=== PATIENT | female | born 1970 | race Caucasian/White ===

== ENCOUNTER 2016-12-04 20:01 | Emergency (ER) | payer OTHER ==
[~2016-12-04] VITALS: Ht 157.5 cm; Wt 81.1 kg
[2016-12-04 20:16] VITALS: Ht 157.5 cm; Wt 81.1 kg
[2016-12-04] MEDS ORDERED: LORA-186 PO (21:50)
[2016-12-04] MEDS ORDERED: IBUP400T22 PO (21:50)
[2016-12-04] MEDS ORDERED: FLUT9.9S NASAL (21:50)
[2016-12-04] MEDS ORDERED: BENZ100C70 PO (21:50)
--- NOTE | 2016-12-04 21:55 | ERD ---
ER Documentation Chief Complaint Date/Time DATE: 12/04/16 TIME: 21:53 Chief Complaint GAMBOA, cough and B ear each x 4 weeks. Aayushrin at 1800 HPI This is a 46-year-old female presenting to the emergency department complaining of cough, ear pain, headache on and off for more than 1 month. Patient denies any current fevers. She states that she took cough syrup earlier today without any relief. She denies any chest pain, shortness of breath. Patient brings son with same complaint ROS All systems reviewed and are negative except as per history of present illness. Medications Home Meds Active Scripts Benzonatate* (Tessalon Perle*) 100 Mg Capsule, 100 MG PO Q8H Y for COUGH, #20 CAP Prov:ANASTASIIA CABRAL PA-C 12/04/16 Fluticasone Propionate (Flonase Allergy Relief) 9.9 Ml [place].susp, 1 SPRAY NASAL BID for 14 Days, #1 BOTTLE TO EACH NOSTRIL Prov:ANASTASIIA CABRAL PA-C 12/04/16 Loratadine* (Claritin*) 10 Mg Tablet, 10 MG PO DAILY, #20 TAB Prov:ANASTASIIA CABRAL PA-C 12/04/16 Ibuprofen* (Ibuprofen*) 400 Mg Tablet, 400 MG PO Q6H Y for PAIN, #30 TAB Prov:ANASTASIIA CABRAL PA-C 12/04/16 PMhx/Soc History of Surgery: Yes (eron, csection x 3) Anesthesia Reaction: No Hx Neurological Disorder: No Hx Respiratory Disorders: No Hx Cardiac Disorders: Yes (htn) Hx Psychiatric Problems: Yes (bipolar) Hx Alcohol Use: No Hx Substance Use: No Hx Tobacco Use: No Physical Exam Vitals Vital Signs Date Time Temp Pulse Resp B/P Pulse Ox O2 Delivery O2 Flow Rate FiO2 12/04/16 20:16 98.3 104 18 182/86 99 Physical Exam GENERAL: well-developed/well-nourished, in no apparent distress, non-toxic appearing HEAD: NC/AT, no swelling noted in frontal or maxillary areas EARS: bilateral tympanic membrane is intact without erythema or effusion NARES: congested THROAT: oropharynx nonerythematous without exudates, no tonsil enlargement, post nasal drip EYES: Conjunctiva normal NECK: Supple, no lymphadenopathy PULM: CTA bilaterally, no rales, rhonchi, or wheezing heard CV: Normal S1S2, RRR, good capillary refill GI: Soft, non-distended, normal bowel sounds, non-tender BACK: No midline tenderness, no masses EXT No clubbing, cyanosis, or edema NEURO: Alert and Orientated SKIN: Intact, normal turgor PSYCH: Normal mood and mentation Procedures/MDM This is a 46-year-old female with history of hypertension presenting to the emergency department complaining of cough and symptoms of upper respiratory infection for the past month, this is likely due to a viral illness. On examination patient was breathing well on room air, and her lungs are clear to auscultation bilaterally, she is afebrile. My clinical suspicion is low suspicion for bacterial sinusitis, pneumonia, strep pharyngitis, or pulmonary emergencies due to physical examination. Since patient's daughter had pneumonia a week ago he wanted a chest x-ray, 2 fingers on the ER. Radiologist stated no infiltrates, pneumothorax or pleural effusion. DISPOSITION: hemodynamically stable for discharge. Prescription for Flonase, ibuprofen, Tessalon Perles and Claritin was given to patient, discussed to return to the ED if not improving as expected or follow-up with a primary care physician. Patient understood and agreed with this plan. Departure Diagnosis: Primary Impression: URI (upper respiratory infection) Condition: Stable Patient Instructions: Preventing Common Respiratory Infections, Uri, Viral, No Abx (Adult) Additional Instructions: FOLLOW UP WITH YOUR PRIMARY CARE PHYSICIAN TOMORROW.Return to this facility if you are not improving as expected. Take all medicines as directed. Return to this facility if you are not improving as expected. ANASTASIIA CABRAL PA-C Dec 04, 2016 21:55
--- NOTE | 2016-12-04 21:56 | RADRPT ---
PROCEDURE: XR Chest. CLINICAL INDICATION: Cough. TECHNIQUE: AP portable chest. COMPARISON: None. FINDINGS: The cardiomediastinal silhouette is within normal limits of size ..The lungs are clear without pleur al effusion or focal consolidation. No pneumothorax. The osseous structures and soft tissues are unr emarkable. IMPRESSION: 1. No evidence for active cardiopulmonary disease. RPTAT:AAJJ Alondra Lorenzo Physician Date Time Electronically viewed and signed by Alondra Lorenzo Physician on 12/04/2016 21:56 ALONDRA/
== END 2016-12-04 22:15 | disposition home or self-care (01) ==
LOC: FTE 20:01
DX: J06.9 Acute upper respiratory infection, unspecified (principal); I10 Essential (primary) hypertension
CPT/HCPCS: 71010; Z7502